=== PATIENT | female | born 1985 | race Caucasian/White ===

== ENCOUNTER 2018-12-30 18:13 | Emergency (ER) | payer BC ==
[~2018-12-30] VITALS: Ht 165.1 cm; Wt 59.4 kg
[2018-12-30 18:16] VITALS: Ht 165.1 cm; Wt 59.4 kg
[2018-12-30 21:39] VITALS: BP 110/72
== END 2018-12-30 21:39 | disposition home or self-care (01) ==
LOC: ED 18:13
DX: O36.4XX0 Maternal care for intrauterine death, not applicable or unspecified (principal); Z3A.08 8 weeks gestation of pregnancy